=== PATIENT | male | born 1975 | race Caucasian/White ===

== ENCOUNTER 2018-08-12 10:15 | Emergency (ER) | payer OTHER ==
[~2018-08-12] VITALS: Wt 80.0 kg
--- NOTE | 2018-08-12 10:30 | ERD ---
ER Documentation Chief Complaint Chief Complaint PER PT PUS ON STOOLS X 3 WEEKS, DENIES ANY PAIN HPI This is a 43-year-old male with a history of hemorrhoids who presents to the ER for evaluation of "pus in my stool". The patient states that he was in [place] 3 weeks ago. He states that when he returned he was not having any problems however after approximately 7 days after being back in [facility] the patient developed some watery diarrhea and today noticed what he described as pus in the stool. He states he had some streaking of blood in his stool as well. He d enies any abdominal pain, fevers, nausea or vomiting associated with this and came to the ER for evaluation. He did go to a clinic previously and states he did not get any medications. ROS All systems reviewed and are negative except as per history of present illness. Physical Exam Vitals Vital Signs Date Temp Pulse Resp B/P (MAP) Pulse Ox O2 O2 Flow FiO2 Time Delivery Rate 08/12/18 98.1 79 18 160/78 99 10:20 (105) Physical Exam Const: No acute distress Head: Atraumatic Eyes: Normal Conjunctiva ENT: Normal External Ears, Nose and Mouth. Neck: Full range of motion. No meningismus. Resp: Clear to auscultation bilaterally Cardio: Regular rate and rhythm, no murmurs Abd: Soft, non tender, non distended. Normal bowel sounds Skin: No petechiae or rashes Back: No midline or flank tenderness Ext: No cyanosis, or edema Neur: Awake and alert Rectal exam: No hemorrhoids, no anal fissures, no purulent discharge, no abscess, no fistula Psych: Normal Mood and Affect Procedures/MDM This 43-year-old male presents to the ER for evaluation of pus in his diarrhea. On my exam the patient was afebrile, nontoxic-appearing, well-hydrated, and hemodynamically stable. Rectal exam reveals no anal fissures, no hemorrhoids. The patient is likely suffering from traveler's diarrhea and could have some blood-streaked stool and mucus secondary to distal overgrowth. The patient will be discharged home with a prescription for ciprofloxacin. The patient will also be given a prescription for Anusol cream although he has no active hemorrhoids at this time he states that he does not have any medications for hemorrhoids and they do become frequent when he has diarrhea. He was given strict return precautions and does feel comfortable with our plan of care. Departure Diagnosis: Primary Impression: Travelers' diarrhea Condition: CARMEN Matthews DO August 12, 2018 10:30
[2018-08-12] MEDS ORDERED: CIPR500T4 PO (10:31)
[2018-08-12] MEDS ORDERED: HYDR25SU23 PR (10:31)
[2018-08-12 10:44] VITALS: BP 153/74; PULSE 73; RESP 18
== END 2018-08-12 10:45 | disposition home or self-care (01) ==
LOC: E/R 10:15
DX: A09 Infectious gastroenteritis and colitis, unspecified (principal)
CPT/HCPCS: 99284